=== PATIENT | male | born 1990 | race Caucasian/White ===

== ENCOUNTER 2016-08-22 08:25 | Emergency (ER) | payer SELFPAY ==
[~2016-08-22] VITALS: Ht 177.8 cm; Wt 65.9 kg
[~2016-08-22 08:25] MED LIST: DOXY100T PO; IBUP800T23 PO; Z.0.NO CURRENT MEDS
[2016-08-22 08:34] VITALS: BP 123/82; PULSE 65; RESP 16; TEMP 98.8; O2SAT 99
[2016-08-22] MEDS ORDERED: MAGICADU2 SWISH-SWAL (09:18)
[2016-08-22] MEDS ORDERED: PENI500T PO (09:18)
--- NOTE | 2016-08-22 09:22 | PD ---
HPI Chief Complaint: ENT Complaint Time Seen by Provider: 08:50 Travel History International Travel<30 days: No Contact w/Intl Traveler<30days: No Traveled to known affect area: No History of Present Illness HPI This patient complains sore throat. He's had fever. He has pain when swallowing. Symptoms severity is moderate. PFSH Past Medical History Hx Anticoagulant Therapy: No ADHD: Yes Autoimmune Disease: No Cardiovascular Problems: No Diabetes: No Diminished Hearing: No Endocrine: No Immune Disorder: No Musculoskeletal: No Respiratory: No Thyroid Disease: No Tetanus Vaccination: Unknown Influenza Vaccination: No Past Surgical History Abdominal Surgery: Yes (HERNIA) Oral Surgery: Yes Other Surgery: Yes Social History Alcohol Use: Yes (Occas) Tobacco Use: Yes (1 ppd) Substance Use: Yes (DAILY MARIJUANA USAGE) Allergies-Medications (Allergen,Severity, Reaction): Coded Allergies: No Known Allergies (Verified , 08/22/16) Reported Meds & Prescriptions Reported Meds & Active Scripts Active Penicillin V Potassium 500 Mg Tab 500 Mg PO Q6H Magic Mouthwash Adult Liq (Multi-Ingredient Mouthwash/Gargle) 120 Ml Susp 10 Ml SWISH-SWAL ACHS Each 5 mL contains: Nystatin 200,000 units, Diphenhydramine 4.25 mg, Viscous Lidocaine 10 mg, Poole syrup 0.8 mL Review of Systems General / Constitutional: Positive: Fever Eyes: No: Blurred Vision HENT: Positive: Sore Throat Physical Exam Narrative NECK: Symmetrical appearance, midline trachea. Has submandibular lymph nodes palpable but no tenderness or crepitus. Thyroid without enlargement, tenderness , or mass. Throat: Has erythema posterior pharynx, uvula midline TMs normal SKIN: Inspection shows no rash or ulcers. Palpation shows no induration or nodules. Data Data Last Documented VS Vital Signs Date Time Temp Pulse Resp B/P Pulse Ox O2 Delivery O2 Flow Rate FiO2 08/22/16 08:34 98.8 65 16 123/82 99 MDM Medical Decision Making Medical Screen Exam Complete: Yes Emergency Medical Condition: Yes Medical Record Reviewed: Yes Differential Diagnosis Tonsillitis, pharyngitis, gingivitis Narrative Course I have reviewed the patient's electronic medical record. Presentation seems consistent with acute pharyngitis. Lack of viral symptoms suggest strep as cause. 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 Med/Other Pt SpecificInfo: Prescription(s) given Scripts Penicillin V Potassium 500 Mg [id number] Mg PO Q6H #28 TAB Ref 0 Prov:Manan Sifuentes MD 08/22/16 Groamwch-Qybygrglrjdfteo-Xhpqakkdn Liq (Magic Mouthwash Adult Liq)120 Ml Susp10 Ml SWISH-SWAL ACHS #120 ML Ref 0 Each 5 mL contains: Nystatin 200,000 units, Diphenhydramine 4.25 mg, Viscous Lidocaine 10 mg, Poole syrup 0.8 mL Prov:Manan Sifuentes MD 08/22/16 Disposition: 01 DISCHARGE HOME Condition: Stable Manan Sifuentes MD Aug 22, 2016 09:22
== END 2016-08-22 09:28 | disposition home or self-care (01) ==
LOC: PHED 08:25
DX: J02.0 Streptococcal pharyngitis (principal); F17.210 Nicotine dependence, cigarettes, uncomplicated
CPT/HCPCS: 99283